=== PATIENT | male | born 1980 | race Asian ===

== ENCOUNTER 2019-01-03 02:48 | Emergency (ER) | payer MEDICAID ==
[~2019-01-03] VITALS: Ht 170.2 cm; Wt 72.6 kg
[2019-01-03 02:59] VITALS: BP_SYST 168
[2019-01-03] MEDS ORDERED: ALPRAZolam 0.25 MG TABLET PO ONE (03:15)
[2019-01-03 04:07] VITALS: BP_SYST 152
== END 2019-01-03 04:07 | disposition home or self-care (01) ==
LOC: EDSEX 02:48 → SED 02:48
DX: F41.9 Anxiety disorder, unspecified (principal)
CPT/HCPCS: 99284